=== PATIENT | female | born 1995 | race Hispanic/Latino ===

== ENCOUNTER 2020-07-15 13:52 | Emergency (ER) | payer SELFPAY ==
[~2020-07-15] VITALS: Ht 165.1 cm; Wt 61.0 kg
[2020-07-15] MEDS ORDERED: HYDROCO/APAP1 TA9 PO (17:03)
[2020-07-15 17:12] VITALS: BP 116/61
== END 2020-07-15 17:24 | disposition home or self-care (01) | DRG 605 ==
LOC: ED 13:52
DX: S00.03XA Contusion of scalp, initial encounter (principal); S70.02XA Contusion of left hip, initial encounter; S40.212A Abrasion of left shoulder, initial encounter; S80.212A Abrasion, left knee, initial encounter; S50.312A Abrasion of left elbow, initial encounter; S50.812A Abrasion of left forearm, initial encounter; V86.65XA Passenger of 3- or 4- wheeled all-terrain vehicle (ATV) injured in nontraffic accident, initial encounter; Y93.I9 Activity, other involving external motion; Y92.410 Unspecified street and highway as the place of occurrence of the external cause